=== PATIENT | female | born 1955 | race Caucasian/White ===

== ENCOUNTER 2017-01-16 07:15 | Inpatient (IN) | payer OTHER ==
--- NOTE | 2017-01-05 09:33 | GHP ---
[f rep st] PREOP HISTORY AND PHYSICAL DATE OF ADMISSION: She will be an a.m. admission for surgery at [facility] on January 16, 2017. PROBLEM: Right knee arthritis. HISTORY OF PRESENT ILLNESS: The patient is a 61-year-old woman with a history of bilateral knee pain. She has had progressive pain over the past 2 or 3 years. She has had Supartz injections on 3 occasions. She has tried ibuprofen regularly in the past. She had 1 cortisone injection in her knees about 10 years ago and another 1 in February of 2016. She did not get much benefit from the recent cortisone injection. Outpatient evaluation shows advanced medial compartment degenerative arthritis in the right knee. She has failed nonsurgical treatment. 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 She has been evaluated by her skin peeling machine operator, Dr. Tamia Causey. She also has a history of questionable low platelet count. 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 She is going to have a TEG test done on her platelets. She is also scheduled to see a screen maker on January 09, 2017. Her recent platelet count was 68,000, but there was abnormal clumping of platelets. No history of DVT, hepatitis or sleep apnea. CURRENT MEDICATIONS: Ambien for sleep. Flonase nasal spray. ALLERGIES: Sulfa. Metal allergies: None. Latex allergy: None. SOCIAL HISTORY: The patient is . She does not smoke cigarettes and occasionally drinks alcohol. She does not work outside of her home. FAMILY HISTORY: Positive for cancer, arthritis and heart disease. PHYSICAL EXAMINATION: GENERAL: She is a healthy-appearing woman. Height 5 feet 7 inches. Weight 160 pounds. BMI 25.1. Eyes: Conjunctivae and sclerae are clear. Pupils are round and reactive. Mouth: Good oral hygiene. No loose teeth. CHEST: Clear. HEART: Regular rhythm. No murmurs. EXTREMITIES : Pertinent findings limited to her right knee. She has full extension and 130 degrees of flexion. She is tender along the medial joint line. A small effusion is present. Her ligaments are stable. Good quadriceps muscle development. IMAGING: Her films show medial compartment degenerative arthritis in the right knee with slight varus alignment. IMPRESSION ON ADMISSION: 1. Right knee medial compartment degenerative arthritis. 2. Frequent PVCs and incomplete right bundle branch block. 3. Questionable platelet volume and function. She will undergo a right total knee arthroplasty. The surgery has been described to her and to her , including the risks, complications, expectations, and recovery time. I stressed the importance of postoperative physical therapy. I have advised her that a small percentage of people with total knee replacement do not get a good result. All her questions have been answered. She consents to surgery. The workup for her platelet count and function should be completed prior to surgery. /[id number]/MODL MTDD
[~2017-01-16 07:15] MED LIST: ACETAMINOPHEN 325 MG TAB PO ONE; CEFAZOLIN 2 GM/DEXTR 100 ML IV ONE; CHLORHEXIDINE GLUC HIBICLENS 118 ML BTL TP ONE; DEXAMETHASONE 4 MG/ML VIAL IVP ONE; FAMOTIDINE 20 MG TAB PO ONE; NS IV ONE; POVIDONE-IODINE 20 ML in SODIUM CL IRRIG SOLUTION 500 ML IRR ONE; ROPI/epiNEPH/KETOROLAC JOINT COCKTAIL IU ONE; TRANEXAMIC ACID IV ONE
[2017-01-16] MEDS ORDERED: LR 1,000 ML IV ONE (09:01)
[2017-01-16] MEDS ORDERED: LIDOCAINE 1% 5 ML SDV ID PRN (09:01)
[2017-01-16] MEDS ORDERED: LIDOCAINE 1% 5 ML SDV ONE (09:08)
[2017-01-16] MEDS ORDERED: FAMOTIDINE 20 MG TAB ONE (09:10)
[2017-01-16] MEDS ORDERED: ACETAMINOPHEN 325 MG TAB ONE (09:10)
[2017-01-16] MEDS ORDERED: DEXAMETHASONE 4 MG/ML VIAL ONE (09:10)
[2017-01-16] MEDS ORDERED: CEFAZOLIN 2 GM/DEXTROSE/100 ML BAG IV ONE (09:10)
[2017-01-16] MEDS ORDERED: NS IV ONE (09:30)
[2017-01-16] MEDS ORDERED: TRANEXAMIC ACID IV ONE (09:30)
[2017-01-16] MEDS ORDERED: FAMOTIDINE 20 MG TAB PO ONE (09:30)
[2017-01-16] MEDS ORDERED: ACETAMINOPHEN 325 MG TAB PO ONE (09:30)
[2017-01-16] MEDS ORDERED: POVIDONE-IODINE 20 ML in SODIUM CL IRRIG SOLUTION 500 ML IRR ONE (09:30)
[2017-01-16] MEDS ORDERED: CEFAZOLIN 2 GM/DEXTR 100 ML IV ONE (09:30)
[2017-01-16] MEDS ORDERED: ROPI/epiNEPH/KETOROLAC JOINT COCKTAIL IU ONE (09:30)
[2017-01-16] MEDS ORDERED: DEXAMETHASONE 4 MG/ML VIAL IVP ONE (09:30)
[2017-01-16] MEDS ORDERED: CHLORHEXIDINE GLUC HIBICLENS 118 ML BTL TP ONE (09:30)
[2017-01-16] MEDS ORDERED: ceFAZolin 1 GM/5 ML SYR ONE (09:53)
[2017-01-16] MEDS ORDERED: PROPOFOL/EMULSION 500 MG/50 ML BOTTLE IV ONE (10:24)
[2017-01-16] MEDS ORDERED: LIDOCAINE 2% 100 MG/5 ML SYR IVP ONE (10:24)
[2017-01-16] MEDS ORDERED: MIDAZOLAM 2 MG/2 ML VIAL ONE (10:29)
[2017-01-16] MEDS ORDERED: fentaNYL 100 MCG/2 ML INJ ONE ×2 (10:36→13:10)
[2017-01-16] MEDS ORDERED: ONDANSETRON 4 MG/2 ML VIAL ONE (11:47)
[2017-01-16] MEDS ORDERED: PROPOFOL 200 MG/20 ML VIAL ONE (11:57)
[2017-01-16] MEDS ORDERED: ROPIVACAINE HCL 150 MG/30 ML INJ ONE (12:03)
[2017-01-16] MEDS ORDERED: clonIDINE 1 MG/10 ML VIAL EP ONE (12:04)
--- NOTE | 2017-01-16 12:19 | POSTOPPROG ---
Post Op Note Date of Operation: 01/16/17 Surgeon: Thad Remy Jd Edwards Developer: Aishwarya Anesthesiologist: Gen Anesthesia: IV Sedation, Spinal Post-op Diagnosis: right knee arthritis Procedure: R TKA Inf/Abcess present in the surg proc area at time of surgery?: No EBL: 50-100
[2017-01-16] MEDS ORDERED: NS 500 ML IV PRN (12:42)
[2017-01-16] MEDS ORDERED: MAGNESIUM HYDROXIDE 30 ML UDCUP PO PRN (12:42)
[2017-01-16] MEDS ORDERED: POLYETHYLENE GLYCOL 3350 17 GM PKT PO PRN (12:42)
[2017-01-16] MEDS ORDERED: PHARMACY PAIN CONSULT 1 EA MISC PRN (12:42)
[2017-01-16] MEDS ORDERED: ONDANSETRON DISINTEGRATING 4 MG TAB PO PRN (12:42)
[2017-01-16] MEDS ORDERED: CYCLOBENZAPRINE 10 MG TAB PO PRN (12:42)
[2017-01-16] MEDS ORDERED: diphenhydrAMINE 25 MG CAP PO PRN (12:42)
[2017-01-16] MEDS ORDERED: oxyCODONE IR 5 MG TAB PO PRN (12:42)
[2017-01-16] MEDS ORDERED: DIPHENOXYLATE/ATROPINE LOMOTIL 1 TAB PO PRN (12:42)
[2017-01-16] MEDS ORDERED: ONDANSETRON 4 MG/2 ML VIAL IVP PRN (12:42)
[2017-01-16] MEDS ORDERED: BISACODYL 10 MG SUPP PR PRN (12:42)
[2017-01-16] MEDS ORDERED: LACTULOSE 20 GM/30 ML UDCUP PO PRN (12:42)
[2017-01-16] MEDS ORDERED: PROMETHAZINE HCL 25 MG SUPPR PR PRN (12:42)
[2017-01-16] MEDS ORDERED: METOCLOPRAMIDE 10 MG/2 ML VIAL IVP PRN (12:42)
[2017-01-16] MEDS ORDERED: PROMETHAZINE HCL 25 MG/ML INJ IVP PRN (12:42)
[2017-01-16] MEDS ORDERED: traMADol 50 MG TAB PO PRN (12:42)
--- NOTE | 2017-01-16 12:58 | GOP ---
[f rep st] OPERATIVE REPORT DATE OF OPERATION: 01/16/2017 SURGEON: Thad Remy MD STUDENT SUPPORT COUNSELOR: Roger Adame. ANESTHESIA: A combination of Marcaine spinal, IV sedation, and adductor canal block. ANESTHESIOLOGIST: Dr. Serrano. PREOPERATIVE DIAGNOSIS: Right knee degenerative arthritis. POSTOPERATIVE DIAGNOSIS: Right knee degenerative arthritis. PROCEDURE PERFORMED: Right total knee arthroplasty, cemented, Carroll and Nephew Journey II, posterio r stabilized. FINDINGS: DESCRIPTION OF PROCEDURE: The patient was given 2 g of IV Ancef preoperatively within 60 minutes of surgery. She also received IV tranexamic acid at a dose of 10 mg/kg. She was placed on the operat ing room table and given spinal anesthesia with Marcaine by Dr. Serrano. She was then placed supin e and given IV sedation. A Mcknight catheter was not used. She wore a SALENA stocking and SCD on the non operative leg. Her right lower extremity was prepped with ChloraPrep from the upper thigh tournique t to the tips of the toes. It was draped free using sterile sheets, stockinette, and Ioban plastic adhesive drape. The lower leg was wrapped with compressive Coban. The leg was exsanguinated with e levation and a 6-inch compressive wrap, and the pneumatic tourniquet was inflated to 250 mmHg. The World Health Organization time-out was performed to verify the correct patient identity and the correct surgical side. The [place] time-out was also performed. The [employer] Tech[employer] leg holding device was sterilely attached to the operating room table and used throughout the procedure to help position the knee. A straight midline incision was made and centered on the patella. Subcutaneous tissues were sharply divided and hemostasis was obtained using electrocautery . A medial subcutaneous flap was developed, and the capsule and synovium were opened in a medial pa rapatellar fashion. Extensive degenerative changes were present, primarily in the medial compartmen t and the patellofemoral joint. The medial capsule and periosteum were elevated off the rim of the medial tibial plateau all the way around to the posteromedial corner. The medial collateral ligamen t was released enough to balance the medial side of the knee. In order to improve exposure, her patella was prepared first. The original thickness of the patella was measured. Peripheral osteophytes were removed. I cut a flat surface on the back of the lay garcia. She was sized for a size 38 mm resurfacing component. I removed enough bone from the patella gupta ch that the remaining bone plus the thickness of the patellar component recreated the original thick ness of the patella. The composite thickness was 22 mm. The intramedullary alignment guide system was used to set up the distal femoral cut. The distal fem ur was cut in 6 degrees of valgus. Because of a slight preoperative flexion contracture, I made a + 2 mm cut on the distal femur. The sizing jig was used to determine proper femoral sizing. I had to shift the size jig anteriorly 1 mm in order to avoid notching the anterior cortex. The 5 in 1 cutt ing block was applied, and the anterior and posterior condylar cuts and chamfer cuts were made. The final jig was used to remove the central portion of the distal femur to accommodate the posterior s tabilized femoral component. I was careful to determine proper rotation by referencing off Whitesid es line. Each cut was checked for accuracy before and after it was made. The femur was sized for a size 6 posterior stabilized component. Next, the tibia was prepared. The proximal tibial cut was made using the extramedullary alignment g uide system. The cut was made in a few degrees of posterior slope. I was careful to achieve proper varus valgus alignment and proper rotation. The posterior compartment was cleared of meniscal remn ants. Osteophytes were removed from the back of her femoral condyles. I checked the flexion and ex tension gaps, and they were equal and balanced. The tibia was sized for a size 5 component. With the trial components in place, I selected an 11 mm polyethylene posterior stabilized tibial insert. The knee came to full extension and flexed to 110 degrees. There was no overstuffing in flexion. Her collateral ligaments were stable and balanced in 90 degrees of flexion and full extension. The trial patellar button was applied, and patellar tr acking was checked. She definitely subluxed laterally with tracking. I did a limited lateral relea se. Following that, her tracking was very good without digital pressure. 40 mL of the joint anesthetic cocktail were injected into the posterior capsule, the periarticular s tructures, the quadriceps muscle and tendon areas, and the subcutaneous tissues along the skin edges . A 2nd dose of IV tranexamic acid was given at a dose of 10 mg/kg. The surfaces were prepared for cementing. They were carefully cleaned with the pulsating lavage irr igation and thoroughly dried. The CarboJet device was used to blow dry the cancellous surfaces. A double batch of methylmethacrylate cement with tobramycin was mixed. While it was still in a semi l iquid state, all [address] components were cemented in place. Excess cement was removed before it hardened. The 10 mm trial tibial insert was re-tried and was the proper thickness. The actual component was i nserted and locked into place. The knee was thoroughly irrigated 1 final time with a dilute Betadin e solution. The tourniquet was deflated and the total tourniquet time was 56 minutes. I checked following deflation of the tourniquet to make sure I had not cut her superior lateral len culate vessel when I did her lateral release. The vastus medialis portion of the extensor mechanism was repaired with several interrupted figure-o [id number] #2 FiberWire sutures. The capsule and synovium were closed first with multiple interrupted [id number] 0 PDS sutures, followed by a running #2 barbed Ethicon Stratafix PDO suture. The gupta bcutaneous tissues were closed with a running 0 barbed Ethicon Stratafix Monoderm suture. The skin was closed with a running 3-0 barbed Ethicon Stratafix Monoderm subcuticular suture. The skin was s ealed with half-inch Steri-Strips. The wound was covered with Xeroform gauze and five 4x4s, and the knee was wrapped with Kerlix and 6-inch compressive wrap. A long-leg SALENA stocking and SCD were eric lied, followed by the cooling device. The patient wore a stocking and SCD on the opposite leg durin g the procedure. I used a size 6 cemented Carroll and Nephew Oxinium posterior stabilized femoral component, a size 5 c emented tibial base plate, an 11 mm posterior stabilized tibial insert, and a 38 mm cemented round a ll-polyethylene resurfacing patellar component. The estimated blood loss following the sedation tourniquet was about 100 mL. The sponge and needle count were correct on 2 occasions. The patient was awakened from anesthesia, transferred to her [facility] and taken to PACU in sa tisfactory condition. There were no intraoperative complications. In the recovery room, for additi onal postoperative pain control, Dr. Serrano performed an adductor canal block. Benjamin Rubio and Roger David acted as surgical assistants. Their assistance was a andrew guillaume. /[id number]/MODL
[2017-01-16] MEDS: KETOROLAC 30 MG/1 ML SDV IVP PRN ×2 (14:15→20:05)
[2017-01-16] MEDS: LR 1,000 ML IV SCH ×2 (14:18→23:00)
[2017-01-16] MEDS ORDERED: TRANEXAMIC ACID 650 MG TAB PO SCH (15:00)
[2017-01-16] MEDS: TRANEXAMIC ACID 650 MG TAB PO SCH ×2 (15:52→23:00)
[2017-01-16] MEDS: ceFAZolin 2 GM/DEXTROSE 100 ML IV SCH ×2 (16:31→23:00)
[2017-01-16] MEDS: ACETAMINOPHEN 325 MG TAB PO SCH ×2 (17:12→23:01)
[2017-01-16] MEDS: ASPIRIN 325 MG TAB PO SCH (20:04)
[2017-01-16] MEDS: TEMAZEPAM 15 MG CAP PO PRN ×2 (20:04→23:19)
[2017-01-16] MEDS: FAMOTIDINE 20 MG TAB PO SCH (20:05)
[2017-01-16] MEDS: SENNOSIDES/DOCUSATE SODIUM TAB PO SCH (20:06)
[2017-01-17 05:17] LABS: HEMATOCRIT 29.5 % (38.0-47.0)
[2017-01-17] MEDS: KETOROLAC 30 MG/1 ML SDV IVP PRN (06:02)
[2017-01-17] MEDS: ACETAMINOPHEN 325 MG TAB PO SCH ×2 (06:02→12:45)
[2017-01-17] MEDS: LR 1,000 ML IV SCH (06:05)
[2017-01-17] MEDS ORDERED: FERROUS SULFATE 140 MG TAB.ER PO SCH (09:00)
[2017-01-17] MEDS: TRANEXAMIC ACID 650 MG TAB PO SCH (09:22)
[2017-01-17] MEDS: ASPIRIN 325 MG TAB PO SCH (09:22)
[2017-01-17] MEDS: SENNOSIDES/DOCUSATE SODIUM TAB PO SCH (09:22)
[2017-01-17] MEDS: FAMOTIDINE 20 MG TAB PO SCH (09:22)
[2017-01-17] MEDS ORDERED: PROPRANOLOL HCL 10 MG TAB PO PRN (11:23)
[2017-01-17] MEDS ORDERED: ZOLPIDEM TARTRATE 5 MG TAB PO PRN (11:23)
--- NOTE | 2017-01-17 11:24 | SOAPPROG ---
SOAP Progress Note Assessment/Plan: Assessment: Afebrile. Moderate pain. Excellent progress with PT. H/H is good. Films look good. Plan:Dsg change. Standing film. DC today. 01/17/17 11:23 Objective: Vital Signs Temp Pulse Resp BP Pulse Ox 36.8 C 68 18 96/62 L 95 01/17/17 04:00 01/17/17 04:00 01/17/17 04:00 01/17/17 04:00 01/17/17 04:00 Laboratory Results 01/17/17 04:26 01/16/17 01/17/17 01/18/17 05:59 05:59 05:59 Intake Total 4600 Output Total 1750 Balance 2850 ICD10 Worksheet Patient Problems: Problems Problem Status Onset Osteoarthritis of right knee Acute
--- NOTE | 2017-01-17 11:29 | PDIAF ---
- Diagnosis Diagnosis: right knee arthritis Code Status: Full Code - Medication Management Discharge Medications: Medications to Continue on Transfer Ascorbic Acid [Vitamin C 500 mg (*)] 1,000 mg PO DAILY 01/16/17 [Last Taken Unknown] Calcium Carbonate [Oyster Shell Calcium 500 mg (*)] 500 mg PO BID 01/16/17 [ Last Taken 01/15/17] Fluticasone Nasal [Flonase Nasal [place]] 1 sprays NASAL DAILY 01/16/17 [Last Taken 01/15/17] Glucosamine Sulfate [Glucosamine Sulfate 500 MG (*)] 500 mg PO BID 01/16/17 [ Last Taken Unknown] Herbals/Supplements -Info Only 1 ea PO DAILY 01/16/17 [Last Taken 01/15/17] Ibuprofen [Motrin (*)] 600 mg PO EVERY OTHER DAY 01/16/17 [Last Taken 01/02/17] Magnesium Oxide [Magnesium Oxide 400 mg (*)] 400 mg PO DAILY 01/16/17 [Last Taken 01/15/17] Multivitamins [Multivitamin (*)] 1 each PO DAILY 01/16/17 [Last Taken 01/15/17] Naproxen Sodium [Aleve 220 MG (*)] 440 mg PO EVERY OTHER DAY 01/16/17 [Last Taken 01/01/17] Propranolol HCl [Inderal 10mg (*)] 10 mg PO DAILY PRN 01/16/17 [Last Taken Unknown] Zolpidem Tartrate [Ambien 5MG (*)] 2.5 mg PO HS PRN 01/16/17 [Last Taken ] Acetaminophen [Tylenol 325mg (*)] 650 mg PO Q6HRS #0 tab 01/17/17 [Last Taken Unknown] Aspirin [Aspirin 325 mg (*)] 325 mg PO DAILY #21 tab 01/17/17 [Last Taken Unknown] Ferrous Sulfate [Slow Fe 140 MG (*)] 140 mg PO DAILY #30 tab.er 01/17/17 [Last Taken Unknown] Ondansetron Odt [Zofran Odt 4 mg (*)] 4 mg PO Q4HRS PRN #0 tab 01/17/17 [Last Taken Unknown] oxyCODONE IR [Oxycodone Ir (*)] 5 - 10 mg PO Q3HRS PRN #0 tab 01/17/17 [Last Taken Unknown] traMADol [Ultram 50 mg (*)] 50 mg PO Q6HRS PRN #0 tab 01/17/17 [Last Taken Unknown] Discharge Medications: Refer to the Discharge Home Medication list for PRN reason. PICC Care - Routine: N/A - Orders Services needed: Home Care, Physical Therapy Home Care Face to Face: I certify that this patient was under my care and that I had the required [id number] encounter meeting the encounter requirements on the discharge day. My findings support the fact that the patient is homebound as defined in CMS Chapter 7 Medicare Benefits Manual 30.1.1, The condition of the patient is such that there exists a normal inability to leave home and consequently, leaving home would require a considerable and taxing effort. Diet Recommendation: no restrictions on diet Diet Texture: Regular Texture Diet Jian Stockings Discontinue Date: 1 week Wound Care Instructions: keep clean and dry. You may shower. Activity/Weight Bearing Restrictions: as tolerated Equipment: Zero Knee device as tolerated when in bed. - Follow Up Care Current Providers and Referrals: Tristan Murillo MD [Primary Care Provider] - Thad Remy MD [Medical Doctor] - 02/05/17 3:00 pm
--- NOTE | 2017-01-17 12:05 | GDS ---
ADMISSION DIAGNOSIS: Right knee degenerative arthritis. DISCHARGE DIAGNOSIS: Right knee degenerative arthritis. OPERATION PERFORMED: 01/16/2017, a right total knee arthroplasty. POSTOPERATIVE COMPLICATIONS: None. CONDITION ON DISCHARGE: Improved. DESCRIPTION OF HOSPITAL COURSE: The patient was admitted to the hospital on the morning of surgery. Her admission CBC was normal. The same day under a combination of spinal anesthesia with Marcaine , IV sedation, and adductor canal block, she underwent a right total knee arthroplasty. Postoperati vely she was treated with multimodal DVT prophylaxis including aspirin. On the first postoperative day, her hemoglobin and hematocrit were 10.0 and 29.5. She was seen by Physical Therapy and made ex cellent progress with ambulation and stairs. By the time of discharge, she was afebrile and was ind ependent walking. DISPOSITION: The patient is discharged to her home. I will see her back in the office on January 25, 2017. She will have home physical therapy. Continue aspirin 325 mg p.o. daily for 21 days. Use a SALENA stocking for 1 week. She may progress to full weightbearing as tolerated. She has prescription s for oxycodone and tramadol for pain control. She may also use Tylenol and ibuprofen. If there ar e any problems, she is to call me at the office. /[id number]/MODL
[2017-01-17 13:32] VITALS: O2SAT 99
[2017-01-17 13:33] VITALS: BP 107/65; PULSE 70; RESP 14; TEMP 98.4
[2017-01-17] MEDS ORDERED: GLUCOSAMINE SULF 500 MG CAP PO SCH (21:00)
[2017-01-17] MEDS ORDERED: CALCIUM CARBONATE 500 MG TAB PO SCH (21:00)
[2017-01-18] MEDS ORDERED: MULTIVITAMINS 1 EACH TAB PO SCH (09:00)
[2017-01-18] MEDS ORDERED: FLUTICASONE NASAL 120 SPRAYS/16 GM MDI EACHNARE SCH (09:00)
[2017-01-18] MEDS ORDERED: Herbals/Supplements -Info Only PO SCH (09:00)
[2017-01-18] MEDS ORDERED: ASCORBIC ACID 500 MG TAB PO SCH (09:00)
[2017-01-18] MEDS ORDERED: MAGNESIUM OXIDE 400 MG TAB PO SCH (09:00)
== END 2017-01-17 14:21 | disposition home health service (06) | DRG 470 ==
LOC: F3N 08:39
PROVIDERS: ADMIT Orthopaedic Surgery; ATTEND Orthopaedic Surgery
PROC: 0SRC0J9 Replacement of Right Knee Joint with Synthetic Substitute, Cemented, Open Approach (ICD-10-PCS; principal; 2017-01-16 10:15)
DX: M17.0 Bilateral primary osteoarthritis of knee (principal); I45.10 Unspecified right bundle-branch block; I49.3 Ventricular premature depolarization
CPT/HCPCS: 97116-GP; 97161-GP; 97165-GO; C1713; J0171; J0690; J0735; J1100; J1885; J2001; J2250; J2405; J2704; J2795; J3010

== ENCOUNTER → 2017-05-28 | Outpatient (CLI) | payer OTHER | LOC: BRMIMAGING 15:14 | PROVIDERS: ATTEND Obstetrics & Gynecology | DX: Z12.31 Encounter for screening mammogram for malignant neoplasm of breast (principal); Z80.3 Family history of malignant neoplasm of breast | CPT/HCPCS: G0202 ==

== ENCOUNTER → 2018-06-03 | Outpatient (CLI) | payer OTHER | LOC: BRMIMAGING 14:50 | PROVIDERS: ATTEND Obstetrics & Gynecology | DX: Z12.31 Encounter for screening mammogram for malignant neoplasm of breast (principal); Z80.3 Family history of malignant neoplasm of breast ==

== ENCOUNTER → 2019-04-07 | Outpatient (CLI) | payer OTHER | LOC: FIMAGING 14:51 | PROVIDERS: ATTEND Orthopaedic Surgery | DX: M17.11 Unilateral primary osteoarthritis, right knee (principal); M25.462 Effusion, left knee ==

== ENCOUNTER → 2019-05-05 | Outpatient (CLI) | payer OTHER | LOC: FIMAGING 14:18 ==

== ENCOUNTER 2019-05-06 08:29 | Inpatient (IN) | payer OTHER | END 2019-05-07 14:12 | disposition home health service (06) | LOC: F3N 08:29 ==